=== PATIENT | male | born 1995 | race Caucasian/White ===

== ENCOUNTER 2016-12-30 21:03 | Emergency (ER) | payer OTHER ==
[2016-12-30 21:11] VITALS: BP 128/97
== END 2016-12-30 23:25 | disposition home or self-care (01) ==
LOC: ED 21:03
DX: S60.451A Superficial foreign body of left index finger, initial encounter (principal); W22.8XXA Striking against or struck by other objects, initial encounter; Y93.89 Activity, other specified; Y99.8 Other external cause status; Y92.89 Other specified places as the place of occurrence of the external cause
CPT/HCPCS: 90715; J2001

== ENCOUNTER 2017-02-01 22:23 | Emergency (ER) | payer OTHER ==
[2017-02-01 23:22] LABS: BASOPHIL % 0.4 % (0-2); PLATELET COUNT 347 x10^3mcL (130-400); RED CELL DISTRIBUTION WIDTH 13.4 % (11.5-14.5)
[2017-02-01 23:28] LABS: CALCIUM 9.5 mg/dL (8.5-10.1); CARBON DIOXIDE 30.1 mmol/L (21-32); CHLORIDE SERUM 107 mmol/L (98-107); CREATININE SERUM 1.3 mg/dL (0.7-1.3); GFR1 > 60 mL/min; GLUCOSE SERUM 138 mg/dL (74-106); POTASSIUM SERUM 3.6 mmol/L (3.5-5.1); SODIUM SERUM 142 mmol/L (136-145)
[2017-02-01 23:33] LABS: ALKALINE PHOSPHATASE 89 U/L (46-116); ALT/SGPT 49 U/L (16-63); AST/SGOT 21 U/L (15-37); BILIRUBIN TOTAL 0.6 mg/dL (0.20-1.00); TOTAL PROTEIN, SERUM 7.8 g/dL (6.4-8.2)
[2017-02-02 02:38] VITALS: BP 120/73
== END 2017-02-02 02:38 | disposition home or self-care (01) ==
LOC: ED 22:23
PROVIDERS: Emergency Medicine
DX: R51 Headache (principal); F12.10 Cannabis abuse, uncomplicated

== ENCOUNTER 2017-02-09 18:44 | Emergency (ER) | payer OTHER ==
[2017-02-09 19:51] VITALS: BP 144/97
== END 2017-02-09 19:35 | disposition home or self-care (01) ==
LOC: ED 18:44
DX: H60.91 Unspecified otitis externa, right ear (principal); H72.91 Unspecified perforation of tympanic membrane, right ear; Z79.2 Long term (current) use of antibiotics
CPT/HCPCS: J1885

== ENCOUNTER 2017-08-06 01:43 | Emergency (ER) | payer OTHER ==
[~2017-08-06] VITALS: Ht 175.3 cm; Wt 126.1 kg
[2017-08-06 05:31] VITALS: BP 128/72
== END 2017-08-06 05:31 | disposition home or self-care (01) ==
LOC: ED 01:43
DX: R04.0 Epistaxis (principal); R42 Dizziness and giddiness

== ENCOUNTER 2017-10-15 11:13 | Emergency (ER) | payer OTHER ==
[~2017-10-15] VITALS: Ht 172.7 cm; Wt 122.5 kg
[2017-10-15 11:28] VITALS: Ht 172.7 cm; Wt 122.5 kg
[2017-10-15 12:22] LABS: BASOPHIL % 0.5 % (0-2); PLATELET COUNT 343 x10^3mcL (130-400); RED CELL DISTRIBUTION WIDTH 13.9 % (11.5-14.5)
[2017-10-15 12:32] LABS: CALCIUM 9.2 mg/dL (8.5-10.1); CARBON DIOXIDE 26.7 mmol/L (21-32); CHLORIDE SERUM 103 mmol/L (98-107); GFR1 > 60 mL/min; GLUCOSE SERUM 92 mg/dL (74-106); POTASSIUM SERUM 3.8 mmol/L (3.5-5.1); SODIUM SERUM 140 mmol/L (136-145)
[2017-10-15 12:36] LABS: ALBUMIN 4.1 g/dL (3.4-5.0); ALKALINE PHOSPHATASE 91 U/L (46-116); ALT/SGPT 49 U/L (16-63); AST/SGOT 22 U/L (15-37); BILIRUBIN TOTAL 0.5 mg/dL (0.20-1.00); TOTAL PROTEIN, SERUM 7.9 g/dL (6.4-8.2)
[2017-10-15 14:03] LABS: AMPHETAMINE QUAL UR NONE DETECTED (NEG <=1000)
[2017-10-15 16:15] VITALS: BP 120/85
== END 2017-10-15 16:15 | disposition home or self-care (01) ==
LOC: ED 11:13
PROVIDERS: Emergency Medicine
DX: R07.89 Other chest pain (principal)
CPT/HCPCS: 36415; 85378; J1885; Q0092